=== PATIENT | male | born 1970 | race Caucasian/White ===

== ENCOUNTER 2018-01-15 12:09 | Emergency (ER) | payer OTHER ==
[~2018-01-15] VITALS: Ht 182.9 cm; Wt 101.8 kg
[2018-01-15 12:11] VITALS: TEMP 36.5; Ht 182.9 cm; Wt 101.8 kg
[2018-01-15] MEDS ORDERED: METHYLPREDNISOLONE 125 MG VIAL IV STA (12:21)
[2018-01-15] MEDS ORDERED: SODIUM CHLORIDE 0.9% 1000ML 1,000 ML IV STA (12:21)
[2018-01-15] MEDS ORDERED: FAMOTIDINE 20MG/5ML IV PUSH IV STA (12:21)
[2018-01-15 12:45] LABS: BASO % 0.2 %; BASO ABS # 0.01 K/uL (0-0.2); EOS % 0.7 %; EOS ABS # 0.04 K/uL (0-0.5); HEMOGLOBIN 15.7 g/dL (14.0-18.0); IG# 0.01 K/uL (0.00-0.02); LYMPH % 31.7 %; LYMPH ABS # 1.72 K/uL (1.2-3.4); MEAN CORPUSCULAR HEMOGLOBIN 29.7 pg (25-34); MEAN CORPUSCULAR HGB CONC 34.1 g/dl (32-36); MEAN PLATELET VOLUME 11.7 fL (7.4-10.4); MONO % 4.4 %; MONO ABS # 0.24 K/uL (0.11-0.59); NEUT % 62.8 %; NEUT ABS # 3.41 K/uL (1.4-6.5); PLATELET COUNT 220 K/uL (130-400); RED CELL DISTRIBUTION WIDTH SD 41.6 fL (36.4-46.3); WHITE BLOOD COUNT 5.43 K/uL (4.8-10.8)
[2018-01-15 13:00] LABS: CALCIUM 9.2 mg/dl (8.5-10.1); CREATININE 0.92 mg/dl (0.60-1.40); POTASSIUM 3.4 mmol/L (3.5-5.1)
[2018-01-15] MEDS ORDERED: DIPH1TAB87 PO (13:01)
[2018-01-15] MEDS ORDERED: IBUP-1050 PO (13:01)
[2018-01-15] MEDS ORDERED: DiphenhydrAMINE HCL 50 MG/ML VIAL IV STA (13:31)
[2018-01-15] MEDS ORDERED: EPP3/2 IM (14:17)
[2018-01-15] MEDS ORDERED: PRED20TA PO (14:17)
[2018-01-15 14:30] VITALS: BP 121/77; PULSE 61; O2SAT 97
--- NOTE | 2018-01-15 16:13 | EMERGENCY ROOM VISIT NOTE ---
History Report prepared by Matthew: Jesus Manuel Mckeon Under the Supervision of: Dr. Hunter Rubio M.D. First contact with patient: 12:14 Chief Complaint: ALLERGIC REACTION Stated Complaint: BEE STINGS History of Present Illness The patient is a 47 year old male who presents to the Emergency Room with complaints of constant itching, rash, and heavy breathing following multiple bee stings 45 minutes ago. 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 He states bees reached his skin through this opening and stung him multiple times in several locations. He states that he does not think he is allergic to them, but notes that he has developed a rash, itchiness, and heavy breathing since being stung. He reports that he immediately took 2 Benadryl after being stung. The patient denies swelling of the tongue. He denies having medical problems. Source of History: patient Onset: 45 minutes ago Position: other (several locations on the body (rash/itching)) Quality: other (itchiness) Timing: constant Associated Symptoms: + SOB (Heavy breathing), No chest pain Note: denies swelling of the tongue Review of Systems See HPI for pertinent positives & negatives. A total of 10 systems reviewed and were otherwise negative. Past Medical & Surgical Medical Problems: (1) No significant past medical history Family History Patient reports no known family medical history. Social History Smoking Status: Former Smoker Current/Historical Medications Scheduled Diphenhydramine Hcl (Benadryl Allergy), 2 TABS PO UD Epinephrine (Epipen), 0.3 MG IM UD Ibuprofen (Advil), 600 MG PO UD Prednisone (Prednisone), 3 TAB PO DAILY Allergies Coded Allergies: BEE STING (Unverified Adverse Reaction, Severe, PAIN-ITCHING- SWELLING-, ) Physical Exam Vital Signs Date Time Temp Pulse Resp B/P (MAP) Pulse Ox O2 Delivery O2 Flow Rate FiO2 01/15/18 14:30 61 20 121/77 97 01/15/18 13:50 60 18 126/82 99 Room Air 01/15/18 13:00 69 18 124/75 98 Room Air 01/15/18 12:41 72 20 130/74 95 Room Air 01/15/18 12:17 Room Air 01/15/18 12:11 36.5 92 17 127/69 90 Room Air Physical Exam Constitutional: Vital signs reviewed. Eyes: Pupils are equal round reactive to light. Conjunctiva are noninjected. ENT: Pharynx is clear without erythema or exudate. Mucous membranes are moist. Neck supple without meningeal signs. No swelling to tongue or uvula. Respiratory: Clear to auscultation bilaterally. Breath sounds are equal bilaterally. No stridor or wheezing. Cardiovascular: Regular rate and rhythm. No rubs or gallops. GI: Soft, nondistended and nontender. Bowel sounds are present. Musculoskeletal: Diffuse rash to extremities and trunk. Consistent with urticaria. 2 stingers placed in left wrist. Integumentary: No cyanosis. Neurological: The patient is awake and alert. No focal deficits. Psychiatric: Normal affect. Medical Decision & Procedures Laboratory Results 01/15/18 12:36 Red Blood Count 5.29, Mean Corpuscular Volume 87.0, Mean Corpuscular Hemoglobin 29.7, Mean Corpuscular Hemoglobin Concent 34.1, Mean Platelet Volume 11.7, Neutrophils (%) (Auto) 62.8, Lymphocytes (%) (Auto) 31.7, Monocytes (%) (Auto) 4.4, Eosinophils (%) (Auto) 0.7, Basophils (%) (Auto) 0.2, Neutrophils # (Auto) 3.41, Lymphocytes # (Auto) 1.72, Monocytes # (Auto) 0.24, Eosinophils # (Auto) 0.04, Basophils # (Auto) 0.01 01/15/18 12:36 Test 01/15/18 12:36 White Blood Count 5.43 K/uL (4.8-10.8) Red Blood Count 5.29 M/uL (4.7-6.1) Hemoglobin 15.7 g/dL (14.0-18.0) Hematocrit 46.0 % (42-52) Mean Corpuscular Volume 87.0 fL (80-100) Mean Corpuscular Hemoglobin 29.7 pg (25-34) Mean Corpuscular Hemoglobin Concent 34.1 g/dl (32-36) Platelet Count 220 K/uL (130-400) Mean Platelet Volume 11.7 fL (7.4-10.4) Neutrophils (%) (Auto) 62.8 % Lymphocytes (%) (Auto) 31.7 % Monocytes (%) (Auto) 4.4 % Eosinophils (%) (Auto) 0.7 % Basophils (%) (Auto) 0.2 % Neutrophils # (Auto) 3.41 K/uL (1.4-6.5) Lymphocytes # (Auto) 1.72 K/uL (1.2-3.4) Monocytes # (Auto) 0.24 K/uL (0.11-0.59) Eosinophils # (Auto) 0.04 K/uL (0-0.5) Basophils # (Auto) 0.01 K/uL (0-0.2) RDW Standard Deviation 41.6 fL (36.4-46.3) RDW Coefficient of Variation 13.0 % (11.5-14.5) Immature Granulocyte % (Auto) 0.2 % Immature Granulocyte # (Auto) 0.01 K/uL (0.00-0.02) Anion Gap 11.0 mmol/L (3-11) Est Creatinine Clear Calc Drug Dose 119.9 ml/min Estimated GFR () 112.8 Estimated GFR (Non- 97.3 BUN/Creatinine Ratio 29.0 (10-20) Calcium Level 9.2 mg/dl (8.5-10.1) Laboratory results as reviewed by me. Medications Administered Medications (Trade) Dose Ordered Sig/Savanna Route Start Time Stop Time Status Last Admin Dose Admin Sodium Chloride 1,000 ml @ 999 mls/hr Q1H1M STAT IV 01/15/18 12:21 01/15/18 13:21 DC 01/15/18 12:41 999 MLS/HR Famotidine (Pepcid 20mg Iv Push) 20 mg ONE STAT IV 01/15/18 12:21 01/15/18 12:23 DC 01/15/18 12:41 20 MG Methylprednisolone Sodium Succinate (Solu-Medrol IV) 125 mg NOW STAT IV 01/15/18 12:21 01/15/18 12:23 DC 01/15/18 12:41 125 MG Diphenhydramine HCl (Benadryl Inj) 25 mg NOW STAT IV 01/15/18 13:31 01/15/18 13:32 DC 01/15/18 13:50 25 MG ECG Per My Interpretation Indication: other (heavy breathing) Rate (beats per minute): 77 Rhythm: normal sinus Findings: other (No ST elevation. No PVCs. ) ED Course 1215: The patient was evaluated in room B10. A complete history and physical exam was performed. 1221: Ordered Solu-Medrol 125 mg IV, Famotidine Pepcid 20 mg IV, Sodium Chloride 1000 ml @ 999 mls/hr IV 1330: I updated with the patient, who is breathing normally. Feeling better but very itchy. 1331: Ordered Benadryl 25 mg IV. 1415: I updated with the patient, who feels much better. Reviewed precautions as well as indication and usage of the EpiPen. He verbalized agreement of the treatment plan. He was discharged home. Medical Decision This is a 47-year-old male who presents with multiple bee stings and heavy breathing. Differential diagnosis includes acute allergic reaction, anaphylaxis , anxiety, bronchospasm, PA. I did perform a limited focused review of portions of the patient's old chart on the electronic medical record. The patient has had no recent pertinent visits to this hospital. I did evaluate the patient as noted above. The patient is covered in urticaria. He was stung multiple times by honeybees. He did have [address] in the left wrist which I easily removed using a plastic card. He did not appear to have any other stingers on his body. IV access was established. I did treat patient with normal saline IV, Solu-Medrol 125 mg IV and Pepcid 20 mg IV. I did order and personally review the patient's 12-lead EKG as described above. He has no acute ischemic changes on his EKG. I did order and review the patient's blood work as noted in the electronic medical record. I did reevaluate the patient. He states that he feels much better. He does complain of persistent itching. He was given Benadryl 25 mg IV. I did reassess the patient again. He states he feels much better. He was given a prescription for prednisone. He did request an EpiPen. I did discuss indications and usage of an EpiPen. He was given a prescription for an EpiPen as well and discharged in good condition. Medication Reconcilliation Current Medication List: was personally reviewed by me Blood Pressure Screening Patient's blood pressure: Normal blood pressure Blood pressure disposition: Did not require urgent referral Impression Primary Impression: Acute allergic reaction Additional Impression: Sting of hornets, wasps, and bees causing poisoning and toxic reactions Scribe Attestation The scribe's documentation has been prepared under my direct and personally reviewed by me in its entirety. I confirm that the note above accurately reflects all work, treatment, procedures, and medical decision making performed by me. Departure Information Dispostion Home / Self-Care Prescriptions Epinephrine (EPIPEN) 0.3 Mg/0.3 Ml Inj 0.3 MG IM UD, #1 BOX Prov: Hunter Rubio M.D. 01/15/18 Prednisone (Prednisone) 20 Mg Tab 3 TAB PO DAILY, #12 TAB FOR 4 DAYS Prov: Hunter Rubio M.D. 01/15/18 Forms HOME CARE DOCUMENTATION FORM, IMPORTANT VISIT INFORMATION Patient Instructions My [facility] Additional Instructions You have been examined and treated today on an emergency basis only. This is not a substitute for, or an effort to provide, complete comprehensive medical care. It is impossible to recognize and treat all injuries or illnesses in a single emergency department visit. It is therefore important that you follow up closely with your physician. Call as soon as possible for an appointment. Return for worsening symptoms or if you develop fever, difficulty breathing, swelling to your lips, tongue or throat or any other concerning symptoms. Problem Qualifiers Primary Impression: Acute allergic reaction Encounter type: initial encounter Qualified Codes: T78.40XA - Allergy, unspecified, initial encounter Additional Impression: Sting of hornets, wasps, and bees causing poisoning and toxic reactions Encounter type: initial encounter Injury intent: accidental or unintentional Qualified Codes: T63.451A - Toxic effect of venom of hornets, accidental (unintentional), initial encounter; T63.441A - Toxic effect of venom of bees, accidental (unintentional), initial encounter; T63.461A - Toxic effect of venom of wasps, accidental (unintentional), initial encounter
== END 2018-01-15 14:32 | disposition home or self-care (01) ==
LOC: C.EDB 12:10
DX: T63.441A Toxic effect of venom of bees, accidental (unintentional), initial encounter (principal); L50.9 Urticaria, unspecified; L29.9 Pruritus, unspecified; Z87.891 Personal history of nicotine dependence

== ENCOUNTER 2018-01-21 03:12 | Emergency (ER) | payer OTHER ==
[~2018-01-21] VITALS: Ht 182.9 cm; Wt 100.6 kg
[~2018-01-21 03:12] MED LIST: DIPH1TAB87 PO; EPP3/2 IM; IBUP-1050 PO; PRED20TA PO
[2018-01-21 03:18] VITALS: TEMP 36.4; Ht 182.9 cm; Wt 100.6 kg
[2018-01-21] MEDS ORDERED: EPP3/2 IM (03:36)
[2018-01-21] MEDS ORDERED: KETOROLAC TROMETHAMINE 30 MG/ML VIAL IV STA (03:50)
[2018-01-21] MEDS ORDERED: OPTIRAY 320 IV PRN (04:00)
[2018-01-21 04:15] LABS: BASO % 0.2 %; BASO ABS # 0.02 K/uL (0-0.2); EOS ABS # 0.18 K/uL (0-0.5); HEMATOCRIT 44.1 % (42-52); HEMOGLOBIN 14.7 g/dL (14.0-18.0); IG# 0.03 K/uL (0.00-0.02); LYMPH % 24.9 %; MEAN CELL VOLUME 89.1 fL (80-100); MEAN CORPUSCULAR HEMOGLOBIN 29.7 pg (25-34); MEAN CORPUSCULAR HGB CONC 33.3 g/dl (32-36); MEAN PLATELET VOLUME 11.4 fL (7.4-10.4); MONO % 7.9 %; NEUT % 64.7 %; NEUT ABS # 5.69 K/uL (1.4-6.5); PLATELET COUNT 218 K/uL (130-400); RED CELL DISTRIBUTION WIDTH SD 42.3 fL (36.4-46.3); WHITE BLOOD COUNT 8.82 K/uL (4.8-10.8)
[2018-01-21 04:20] LABS: ISTAT CREATININE 0.8 mg/dl (0.6-1.3); ISTAT IONIZED CALCIUM 1.15 mmol/l (1.12-1.32); ISTAT POTASSIUM 3.8 mEq/L (3.3-5.0)
[2018-01-21] MEDS ORDERED: CEFTRIAXONE SOD INJ 1 GM ADDVIAL IV STA (04:28)
[2018-01-21] MEDS ORDERED: CEPHALEXIN 500MG HOME PACK 1 EA BTL PO ONE (04:30)
[2018-01-21 05:17] VITALS: BP 146/84; PULSE 50; O2SAT 98
--- NOTE | 2018-01-21 05:19 | EMERGENCY ROOM VISIT NOTE ---
History First contact with patient: 03:26 Chief Complaint: FOOT PAIN Stated Complaint: LEFT FOOT PAIN History of Present Illness The patient is a 47 year old male who presents to the Emergency Room with complaints of severe left foot pain for the past day. Patient thinks he might of stepped on something. He states his drained some fluid out of the forefoot and third toe area. Patient states he had multiple bee stings the other day and was seen here in the ER and placed on prednisone that he has now finished. Patient denies chest pain, dyspnea, fever, chills, injury to the foot , drainage from the foot, numbness, tingling. No other concerns per patient. Patient reports a current tetanus. Review of Systems An 10 system review of systems was completed with positives and pertinent negatives listed in the HPI. Past Medical/Surgical History Medical Problems: (1) No significant past medical history Family History Patient reports no known family medical history. Social History Smoking Status: Former Smoker Drug Use: none Marital Status: Housing Status: lives with family Occupation Status: employed Current/Historical Medications Scheduled Epinephrine (Epipen), 0.3 MG IM UD Physical Exam Vital Signs Date Time Temp Pulse Resp B/P (MAP) Pulse Ox O2 Delivery O2 Flow Rate FiO2 18 03:18 36.4 54 18 120/73 96 Room Air Physical Exam VITALS: Vitals are noted on the nurse's note and reviewed by myself. Vital signs stable. GENERAL: Pleasant male, in no acute distress, nondiaphoretic, well-developed well-nourished. SKIN: Capillary reflex less than 2 seconds. HEENT: Normocephalic. PERRLA. EOMI. Nares patent. Mucous membranes moist. HEART: Regular rate and rhythm without murmurs gallops or rubs. LUNGS: Clear to auscultation bilaterally without wheezes, rales or rhonchi. No retractions or accessory muscle use. MUSCULOSKELETAL: No gross musculoskeletal defects. No pedal edema. No calf tenderness. There is no visual deformity of the left foot. There is minimal erythema over the plantar aspect of the third toe and forefoot region without fluctuance or palpable abscess or foreign body. no ecchymosis. There is no warmth. There is tenderness and swelling over the plantar aspect of the forefoot and third toe of the left foot. The range of motion of the foot is not limited secondary to pain. There is no tenderness over the plantar fascia. Dorsi flexion 5/5 and Plantar flexion 5/5. The skin is intact and there are no lacerations. Dorsalis pedis pulse 2+. There are healing abrasions to the top of the foot. NEURO: Patient was alert and oriented to person place and time. Normal sensation to light and sharp touch. No focal neurological deficits. Medical Decision & Procedures Laboratory Results 01/21/18 04:00 Red Blood Count 4.95, Mean Corpuscular Volume 89.1, Mean Corpuscular Hemoglobin 29.7, Mean Corpuscular Hemoglobin Concent 33.3, Mean Platelet Volume 11.4, Neutrophils (%) (Auto) 64.7, Lymphocytes (%) (Auto) 24.9, Monocytes (%) (Auto) 7.9, Eosinophils (%) (Auto) 2.0, Basophils (%) (Auto) 0.2, Neutrophils # (Auto) 5.69, Lymphocytes # (Auto) 2.20, Monocytes # (Auto) 0.70, Eosinophils # (Auto) 0.18, Basophils # (Auto) 0.02 Test 01/21/18 04:00 01/21/18 04:06 White Blood Count 8.82 K/uL (4.8-10.8) Red Blood Count 4.95 M/uL (4.7-6.1) Hemoglobin 14.7 g/dL (14.0-18.0) Hematocrit 44.1 % (42-52) Mean Corpuscular Volume 89.1 fL (80-100) Mean Corpuscular Hemoglobin 29.7 pg (25-34) Mean Corpuscular Hemoglobin Concent 33.3 g/dl (32-36) Platelet Count 218 K/uL (130-400) Mean Platelet Volume 11.4 fL (7.4-10.4) Neutrophils (%) (Auto) 64.7 % Lymphocytes (%) (Auto) 24.9 % Monocytes (%) (Auto) 7.9 % Eosinophils (%) (Auto) 2.0 % Basophils (%) (Auto) 0.2 % Neutrophils # (Auto) 5.69 K/uL (1.4-6.5) Lymphocytes # (Auto) 2.20 K/uL (1.2-3.4) Monocytes # (Auto) 0.70 K/uL (0.11-0.59) Eosinophils # (Auto) 0.18 K/uL (0-0.5) Basophils # (Auto) 0.02 K/uL (0-0.2) RDW Standard Deviation 42.3 fL (36.4-46.3) RDW Coefficient of Variation 13.0 % (11.5-14.5) Immature Granulocyte % (Auto) 0.3 % Immature Granulocyte # (Auto) 0.03 K/uL (0.00-0.02) Bedside Hemoglobin 14.3 g/dl (14.0-18.0) Bedside Hematocrit 42 % (42-52) Bedside Sodium 142 mEq/L (135-144) Bedside Potassium 3.8 mEq/L (3.3-5.0) Bedside Chloride 104 mEq/L (101-112) Bedside Total CO2 24 mEq/l (24-31) Anion Gap 19.0 mmol/L (16-25) Bedside Blood Urea Nitrogen 25 mg/dl (7-18) Bedside Creatinine 0.8 mg/dl (0.6-1.3) Bedside Glucose (other) 101 mg/dl (70-99) Bedside Ionized Calcium (Ilene) 1.15 mmol/l (1.12-1.32) Medications Administered Medications (Trade) Dose Ordered Sig/Savanna Route Start Time Stop Time Status Last Admin Dose Admin Ketorolac Tromethamine (Toradol Inj) 10 mg NOW STAT IV 01/21/18 03:50 01/21/18 03:53 DC 01/21/18 04:07 10 MG Ceftriaxone Sodium (Rocephin Inj) 1 gm NOW STAT IV 01/21/18 04:28 01/21/18 04:29 DC 01/21/18 04:41 1 GM Cephalexin Monohydrate (Keflex 500MG Home Pack) 1 homepack NOW ONCE PO 01/21/18 04:30 01/21/18 04:31 DC 01/21/18 04:41 1 HOMEPACK ED Course Prior records reviewed and summarized as above. Triage Nursing notes reviewed. The patient's history was concerning for swelling and redness of the forefoot. Differential diagnosis: Etiologies such as cellulitis, abscess, MRSA infection, foreign body, DVT, necrotizing fasciitis, dermatitis, drug eruption, as well as others were entertained.. Physical examination: As above ER treatment provided: Toradol On reassessment the patient felt better. Diagnostics interpreted by me: The labs revealed no leukocytosis. Stable creatinine on i-STAT Imaging studies: CT LEFT FOOT: Increased subcutaneous density involving the plantar surface adjacent to the second and third metatarsophalangeal joints. No radiopaque foreign body identified. No definite well-defined mass or involvement of adjacent tendons or osseous structures. No periosteal reaction, osseous destruction or evidence of significant joint effusion. Primary consideration is fibrotic changes or localized cellulitis. No evidence for abscess or CT evidence for osteomyelitis. Radiologist: Jesus Manuel Swanson MD Foot x-ray with no foreign body or fracture per my interpretation. This appears to be left foot pain with developing cellulitis. Patient had no palpable abscess. No foreign body was visualized. No fracture. Further imaging was ordered and no FB scene on CT. Patient was advised to take medications as directed and avoid walking barefoot. Patient was offered crutches and declined. He was advised to follow-up with family care in a few days or here in the ER sooner for spreading of redness, fevers, severe pain, worsening signs or symptoms or as needed. Patient was afebrile and nontoxic appearing. He had stable vital signs. He reported a current tetanus. By the evaluation outlined above emergent etiologies such as abscess, necrotizing fasciitis, DVT, as well as others were deemed relatively unlikely. The pt informed about the findings as listed above. All questions were answered and pleased with the treatment. Return instructions were outlined and the patient was discharged in stable condition. Outpatient prescription management: Keflex Referral: The patient was referred back to primary care physician for follow-up in 2 to 3 days for a recheck of the current condition. Case reviewed with my attending The chart was completed utilizing [employer] voice recognition software. Grammatical errors, random word insertions, pronoun errors, and incomplete sentences are an occassional consequence of this system due to software limitations, ambient noise, and hardware issues. Any formal questions or concerns about the content, text, or information contained within the body of this dictation should be directly addressed to the physician orthopedic physician assistant for clarification. Medical Decision As above Medication Reconcilliation Current Medication List: was personally reviewed by me Blood Pressure Screening Patient's blood pressure: Normal blood pressure Impression Primary Impression: Cellulitis of left foot Departure Information Dispostion Home / Self-Care Condition GOOD Referrals No Doctor, Assigned (PCP) Patient Instructions My [facility] Additional Instructions Cephalexin(Keflex) 500mg: Take one pill four times daily for 10 days for your skin infection. All antibiotics can cause diarrhea. If this occurs and you feel worse or it does not resolve in 1-2 days follow up with your doctor or return to the Emergency Department as this could be signs of serious underlying problems. Any medication can cause an allergic reaction, stop the pills immediately and return to the ER for rash, hives, breathing difficulties, or swelling. Ibuprofen(Motrin, Advil) may be used for fever or pain. Use 600mg every six hours as needed. Take with food. Avoid using more than 2400mg in a 24 hour period. Do not use 2400mg per day for more than three consecutive days without physician direction. Prolonged inappropriate use can lead to stomach upset or ulcers. (AND/OR) Acetaminophen(Tylenol) may be used for fever or pain. Use 1000mg every six hours as needed. Avoid using more than 4000mg in a 24 hour period. Avoid squeezing at the area. Warm compresses to the affected area 4 times daily for 15-20 minutes. Rest and drink plenty of fluids. Continue current medications. Return to the ER for severe pain, persistent fevers, spreading redness, or any worsening of your condition. Follow up with your primary physician within 2-3 days for a recheck of the current condition.
[2018-01-21] MEDS ORDERED: CEPH500C2 PO (05:22)
--- NOTE | 2018-01-21 06:36 | DIAGNOSTIC IMAGING REPORT ---
L FOOT MIN 3 VIEWS ROUTINE CLINICAL HISTORY: Left foot pain. No known trauma. COMPARISON: None FINDINGS: Tarsometatarsal joints are intact. No fracture within the left foot is identified. There is no osseous lesion. No erosions are identified. No radiopaque foreign body is identified. There is mild posterior and plantar calcaneal spurring. IMPRESSION: 1. No acute fracture within the left foot. 2. Mild posterior and plantar calcaneal spurring. Electronically signed by: Enoc Kamara M.D. 01/21/2018 6:35 AM Dictated Date/Time: 01/21/2018 6:33 AM
--- NOTE | 2018-01-21 07:07 | DIAGNOSTIC IMAGING REPORT ---
LEFT FOOT CT CT DOSE: 228.35 mGy.cm HISTORY: severe left foot pain, ? FB/infx TECHNIQUE: Multiaxial CT images of the left foot were performed and reformatted in the sagittal and coronal plane following the use of intravenous contrast. A dose lowering technique was utilized adhering to the principles of ALARA. COMPARISON: Left foot 01/21/2018. FINDINGS: No fracture or dislocation. Small plantar and posterior calcaneal spurs. The Lisfranc joint is intact. No cortical destruction to suggest osteomyelitis. Mild subcutaneous fat stranding along the plantar surface of the second third MTP joints. No fluid collections to suggest an abscess. No radiopaque foreign bodies. IMPRESSION: 1. Subcutaneous fat stranding at the plantar surface of the second and third MTP joints. This favors a cellulitis. 2. No loculated fluid collections to suggest an abscess. 3. No radiopaque foreign bodies. 4. No evidence for osteomyelitis. Electronically signed by: Rhys Kelly M.D. 01/21/2018 7:06 AM Dictated Date/Time: 01/21/2018 7:02 AM
== END 2018-01-21 05:30 | disposition home or self-care (01) ==
LOC: C.EDB 03:13
DX: L03.116 Cellulitis of left lower limb (principal); Z87.891 Personal history of nicotine dependence